=== PATIENT | female | born 1975 | race Caucasian/White ===

== ENCOUNTER 2022-03-18 13:17 | Observation (INO) | payer BC ==
[2022-03-18 15:30] LABS: BLOOD UREA NITROGEN,BUN 13 mg/dL (7.0-18.0); CARBON DIOXIDE,CO2 26.7 mmol/L (21.0-32.0); CHLORIDE,CL 104 mmol/L (98-107); GLUCOSE RANDOM 106 mg/dL (74-106); POTASSIUM,K 4.2 mmol/L (3.5-5.1); SODIUM,NA 139 mmol/L (136-145)
[2022-03-18 15:33] LABS: ESTIMATED GFR 79 mL/min (>60)
[2022-03-18] MEDS ORDERED: Polyethylene Glycol 3350 Powder 17 GM Packet PO PRN (17:06)
[2022-03-18] MEDS ORDERED: Ondansetron 4 MG/2 ML SDV IVPUSH PRN (17:06)
[2022-03-18] MEDS ORDERED: Albuterol/Ipratropium 3.0-0.5 MG/3 ML Neb Soln NEB PRN (17:06)
[2022-03-18] MEDS ORDERED: Acetaminophen 325 MG Tab PO PRN (17:06)
[2022-03-18] MEDS ORDERED: Iopamidol 755 MG/ML 500 ML Multipack Bottle IVPUSH STA (17:08)
[2022-03-18] MEDS ORDERED: Ketorolac 30 MG/ML SDV IVPUSH ONE (17:13)
[2022-03-19 06:59] LABS: CARBON DIOXIDE,CO2 27.9 mmol/L (21.0-32.0); POTASSIUM,K 3.8 mmol/L (3.5-5.1)
[2022-03-19] MEDS ORDERED: Aspirin 81 MG Tab.EC PO SCH (09:00)
== END 2022-03-19 14:55 | disposition home or self-care (01) ==
LOC: MW.ED 13:17 → MW.MS 16:49 → UNDOADMOB 16:49 → MW.MS 19:17
PROVIDERS: ADMIT Internal Medicine; ATTEND Internal Medicine
DX: R20.2 Paresthesia of skin (principal); R20.0 Anesthesia of skin; R29.818 Other symptoms and signs involving the nervous system; M79.604 Pain in right leg; E03.9 Hypothyroidism, unspecified; I10 Essential (primary) hypertension; Z20.822 Contact with and (suspected) exposure to COVID-19; Z79.890 Hormone replacement therapy; Z79.82 Long term (current) use of aspirin; Z79.899 Other long term (current) drug therapy
CPT/HCPCS: 36415; 70450; 70496; 70498; 70551; 71045; 80053; 80061; 81001; 82607; 83735; 84439; 84443; 84484; 84703; 85025; 85610; 85730; 87086; 87635; 93005; 96374; 99285; A9270; G0378; J1885; Q9967; 93010; U0002